=== PATIENT | female | born 1965 | race Asian ===

== ENCOUNTER 2019-11-25 15:26 | Outpatient (CLI) | payer BC | END 2019-11-25 15:27 | disposition home or self-care (01) | LOC: LAB 15:26 | PROVIDERS: ATTEND Family Medicine | DX: Z20.828 Contact with and (suspected) exposure to other viral communicable diseases (principal) | CPT/HCPCS: 81599 ==

== ENCOUNTER 2019-12-04 11:40 | Outpatient (CLI) | payer BC | END 2019-12-04 11:41 | disposition home or self-care (01) | LOC: LAB 11:40 | PROVIDERS: ATTEND Family Medicine | DX: Z20.828 Contact with and (suspected) exposure to other viral communicable diseases (principal) | CPT/HCPCS: 81599 ==

== ENCOUNTER 2020-03-09 14:26 | Outpatient (CLI) | payer BC | END 2020-03-09 14:27 | disposition home or self-care (01) | LOC: LAB 14:26 | PROVIDERS: ATTEND Psychiatry & Neurology Neurology | DX: G35 Multiple sclerosis (principal) | CPT/HCPCS: 36415; 81599; 86355; 86357; 86359; 86360 ==